=== PATIENT | female | born 1970 | race Two or more races ===

== ENCOUNTER → 2018-08-24 | Outpatient (CLI) | payer BC ==
--- NOTE | 2018-08-27 09:02 | RAD ---
EXAM: Ultrasound extremity nonvascular-right third digit DATE: 08/24/2018 3:23 PM INDICATION: skin growth on right middle finger COMPARISON: No Prior TECHNIQUE: Grayscale and color Doppler sonographic evaluation of the third digit in the region of palpable abnormality. FINDINGS: A 1.7 x 1.8 cm soft tissue mass is seen at the dorsal aspect of the DIP joint of the right third digit containing internal Doppler flow/vascularity. Although this soft tissue mass overlies the DIP joint a clear communication to the DIP joint is not delineated. IMPRESSION: Soft tissue mass overlying the dorsal third digit DIP joint should be further evaluated by MRI to delineate. No obvious DIP joint extension/involvement is seen. Electronically signed by: Manjinder Coulter MD (08/27/2018 8:58 AM) [facility]
== END | disposition home or self-care (01) ==
LOC: US 14:22
PROVIDERS: ATTEND Nurse Practitioner Adult Health
DX: B07.8 Other viral warts (principal)
CPT/HCPCS: 76881